=== PATIENT | male | born 1955 | race Caucasian/White ===

== ENCOUNTER 2017-06-12 16:33 | Emergency (ER) | payer OTHER ==
--- NOTE | 2017-06-12 16:44 | UC ---
HPI Febrile Illness - HPI Summary HPI Summary: 61 YEAR OLD MALE PRESENTS WITH COMPLAINS OF FEVER, CHILLS AND COUGH. - History of Current Complaint Time Seen by Provider: 06/12/17 16:44 Hx Obtained From: Patient Initial Severity: Moderate Current Severity: Moderate - Allergy/Home Medications Allergies/Adverse Reactions: Allergies Allergy/AdvReac Type Severity Reaction Status Date / Time Amoxicillin Allergy Rash Verified 06/12/17 16:52 Codeine Allergy Headache Verified 06/12/17 16:52 Home Medications: Home Medications Aspirin [Ecotrin 325 MG] 650 mg PO Q6H PRN 06/12/17 [History Confirmed 06/12/17] Methimazole TAB* [Tapazole TAB*] 20 mg PO DAILY 06/12/17 [History Confirmed ] Propranolol LA CAP* [Inderal LA CAP*] 80 mg PO DAILY 06/12/17 [History Confirmed 06/12/17] Simvastatin [Zocor 40 MG (NF)] 40 mg PO QPM 06/12/17 [History Confirmed 06/12/17 ] PMH/Surg Hx/FS Hx/Imm Hx Previously Healthy: Yes - Surgical History Surgical History: Unable to Obtain/Confirm Review of Systems Constitutional: Fever, Chills Skin: Negative Eyes: Negative ENT: Negative Respiratory: Negative Cardiovascular: Negative Gastrointestinal: Negative Genitourinary: Negative Motor: Negative Neurovascular: Negative Musculoskeletal: Negative Neurological: Negative Psychological: Negative All Other Systems Reviewed And Are Negative: Yes Physical Exam Triage Information Reviewed: Yes Vital Signs Reviewed: Yes Eye Exam: Normal ENT Exam: Normal Dental Exam: Normal Neck exam: Normal Neck: Positive: 1 Respiratory Exam: Normal Cardiovascular Exam: Normal Abdominal Exam: Normal Musculoskeletal Exam: Normal Neurological Exam: Normal Psychological Exam: Normal Skin Exam: Normal Course/Dx - Diagnoses Clinic Provider Diagnoses: FEVER. CHILLS. BODYACHES Discharge - Discharge Plan Condition: Stable Disposition: HOME Prescriptions: Azithromyxin SAMMI (NF) [Z-Sammi (Zithromax) 250 mg tabs #6] 2 tab PO .TODAY, THEN 1 DAILY #6 tab Patient Education Materials: Sinusitis (ED) Referrals: Chani Dang MD [Primary Care Provider] -
[2017-06-12 16:52] VITALS: BP 116/71
--- NOTE | 2017-06-12 17:32 | RAD ---
INDICATION: Cough COMPARISON: None TECHNIQUE: PA and lateral dual-energy views were obtained. FINDINGS: Bones/Soft Tissues: There are no acute bony findings. Cardiomediastinal: The cardiomediastinal silhouette is normal. Lungs: There are no infiltrates. Pleura: There are no pleural effusions. Other: None IMPRESSION: NO ACTIVE DISEASE.
== END 2017-06-12 18:03 | disposition home or self-care (01) ==
LOC: UCEAST 16:33
DX: R50.9 Fever, unspecified (principal); Z88.6 Allergy status to analgesic agent; Z88.1 Allergy status to other antibiotic agents; Z79.82 Long term (current) use of aspirin; R52 Pain, unspecified
CPT/HCPCS: 71020; 87502; 87651; 99212; G0463

== ENCOUNTER 2018-03-22 06:13 | Observation (INO) | payer OTHER ==
--- NOTE | 2018-03-11 21:17 | HP ---
CC: Dr. Chani Dang; Dr. Willard Boston * ADMISSION HISTORY AND PHYSICAL: DATE OF ADMISSION: 03/22/18. ATTENDING SURGEON: Dr. Teresa Anderson.* (DICTATED BY BELIA ANDREWS) CHIEF COMPLAINT: Thyrotoxicosis (Graves' disease). HISTORY OF PRESENT ILLNESS: This is a 62-year-old generally healthy male, who beginning about a year ago noted symptoms of shortness of breath, fatigue, poor exercise tolerance, and excessive sweating. He was worked up and found to have hyperthyroidism (Graves' disease). He has been followed by Dr. Boston's office and managed on methimazole and propranolol. His symptoms improved significantly. He does have a [id number] goiter. His methimazole has been tapered down and the propranolol has been stopped without any recurrence of the symptoms. He was referred to Dr. Anderson for surgical evaluation and was seen in the office on 02/05/18. Exam at that time revealed a somewhat enlarged , but otherwise nontender thyroid gland without suspicious masses or nodules. The patient understands the indication for surgery, the risks, benefits, and alternatives and would like to proceed as scheduled with bilateral subtotal thyroidectomy. He has already received a prescription for levothyroxine from Dr. Boston's office, which he will initiate postoperatively. PAST MEDICAL HISTORY: Hyperlipidemia, allergic rhinitis, hereditary hemochromatosis, Graves' disease (as noted above). PAST SURGICAL HISTORY: Bilateral stapedectomy. CURRENT MEDICATIONS: 1. Simvastatin 40 mg once daily. 2. Methimazole 5 mg once daily. 2. EpiPen p.r.n. for wasp stings. ALLERGIES: CODEINE (GI effects), AMOXICILLIN (rash), DOXYCYCLINE (rash). FAMILY HISTORY: Negative for endocrine malignancy. It is also negative for anesthesia problems, bleeding or clotting disorders. SOCIAL HISTORY: The patient is . 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 He denies use of tobacco. He drinks alcohol infrequently (1 drink per month) and denies other recreational drug use. REVIEW OF SYSTEMS: General: As above per HPI with approximately 10 to 15 pounds weight gain about a year ago, which he has been gradually trying to lose. No other acute or recent illnesses. HEENT: No visual changes. No other problems reported. Specifically, no dysphagia or dyspnea. Cardiovascular : No chest pain, palpitations or history of hypertension. Respiratory: No history of asthma, chronic cough or shortness of breath. GI: No problems reported. Colonoscopy last done about 10 years ago with repeat due this May and no interval symptoms of concern. : No problems reported. Endocrine: As above. No history of diabetes. Remainder of the review of systems is negative. PHYSICAL EXAMINATION GENERAL: Well-nourished, mildly obese male, in no acute distress. VITAL SIGNS: Height 71 inches, weight 203 pounds, blood pressure 118/84, pulse 58, respirations 16. HEENT: Pupils equal and round, reactive. EOMs intact. No conjunctival pallor. No significant exophthalmos. NECK: No cervical or supraclavicular lymphadenopathy. No masses, thyroid as per Dr. Anderson's exam. LUNGS: Clear to auscultation. No rales or wheezes. HEART: Regular rate and rhythm. No murmur noted. ABDOMEN: Soft, nontender to palpation. No palpable masses or organomegaly. No palpable inguinal hernias. GENITALIA: Otherwise normal including testes. EXTREMITIES: No edema. RECTAL: Not done. BACK: No spinous processes or CVA tenderness. NEUROLOGIC: Grossly intact. SKIN: Warm and dry. No suspicious rashes or lesions. IMPRESSION: Thyrotoxicosis (Graves' disease). PLAN: Bilateral subtotal thyroidectomy. BELIA ANDREWS [id number]/[facility] #: [id number] [facility]IAL HOSPITALDamaris
[~2018-03-22 06:13] MED LIST: Buffered Lidocaine 0.9% SYRIN* 5 ML/SYR SYRINGE INTRADERM ONE; Dexamethasone IV* 4 MG/ML 1 ML (4 MG) IV SLOW PU ONE; Famotidine IV* 10 MG/ML 2 ML (20 mg) IV ONE
[2018-03-22] MEDS ORDERED: fentaNYL* 50 MCG/ML 2 ML VIAL (100 MCG VIAL) ONE ×2 (06:43→11:04)
[2018-03-22] MEDS ORDERED: Midazolam* 1 MG/ML 2 ML VIAL (2 MG) ONE (06:44)
[2018-03-22] MEDS ORDERED: Dexamethasone IV* 4 MG/ML 1 ML (4 MG) ONE (06:46)
[2018-03-22] MEDS ORDERED: Famotidine IV* 10 MG/ML 2 ML (20 mg) ONE (06:47)
[2018-03-22] MEDS ORDERED: Bupivacaine 0.25% W/EPI* 10 ML SDV ONE (06:55)
[2018-03-22] MEDS ORDERED: Rocuronium* 10 MG/ML VIAL ONE (07:31)
[2018-03-22] MEDS ORDERED: Propofol* 10 MG/ML 20 ML BTL IV PUSH ONE (08:10)
[2018-03-22] MEDS ORDERED: Lidocaine 2% PF * 5 ML VIAL ONE (08:10)
[2018-03-22] MEDS ORDERED: DiMENhydriNATE IV* 50 MG/ML VIAL IV PUSH PRN (08:14)
[2018-03-22] MEDS ORDERED: oxyCODONE/Acetamin 5/325 MG* TAB PO PRN (08:14)
[2018-03-22] MEDS ORDERED: Ondansetron INJ* 2 MG/ML VIAL IV PRN ×2 (08:14→10:56)
[2018-03-22] MEDS ORDERED: Acetaminophen TAB* 325 MG PO PRN ×2 (08:14→10:52)
[2018-03-22] MEDS ORDERED: Naloxone* 0.4 MG/ML 1 ML VIAL IV PRN (08:14)
[2018-03-22] MEDS ORDERED: Ondansetron INJ* 2 MG/ML VIAL ONE (09:55)
--- NOTE | 2018-03-22 10:21 | OP ---
Operative Report - Blank - Operative Report Date of Operation: 03/22/18 Note: Brief Operative Note Preop Dx: Hyperthyroidism Postop Dx: same Procedure: Bilateral subtotal thyroidectomy Anesthesia: GET Surgeon: Justin Numerical Control Machine Operator: BELIA Canales Fluids: 1300 ml RL EBL: 50 ml Specimen: subtotal thyroid Drains: none Findings: dictated
[2018-03-22] MEDS ORDERED: Morphine VIAL* 4 MG/ML VIAL (1 ml vial) IV PRN (10:54)
[2018-03-22] MEDS ORDERED: Morphine INJ* 2 MG/ML 1 ML SYRINGE (TWO MG - NEW SYRINGE VERSION) IV PRN (10:54)
[2018-03-22] MEDS: fentaNYL* 50 MCG/ML 2 ML VIAL (100 MCG VIAL) IV PRN ×2 (11:05→11:56)
[2018-03-22] MEDS ORDERED: HYDROcodone/ACET. 7.5/325 LIQ* 15 ML UDC ONE (11:34)
[2018-03-22] MEDS: HYDROcodone/ACET. 7.5/325 LIQ* 15 ML UDC PO PRN ×3 (11:36→22:34)
--- NOTE | 2018-03-23 00:37 | OP ---
CC: [facility]; Dr. Chani Dang; Dr. Willard Boston OPERATIVE REPORT: DATE OF OPERATION: 03/22/18 DATE OF : 57 SURGEON: Teresa Anderson MD ORTHOTIC TECHNICIAN: BELIA Canales PRE-OP DIAGNOSIS: Hyperthyroidism. POST-OP DIAGNOSIS: Hyperthyroidism. OPERATIVE PROCEDURE: Bilateral subtotal thyroidectomy. INDICATIONS: Mr. Webber is a 62-year-old male who had symptomatic hyperthyroidism prompting the plan for surgical intervention. DESCRIPTION OF PROCEDURE: He was brought to the operating room, placed on the OR table in a supine p osition and given general anesthesia. The neck was prepped and draped in the usual sterile fashion. After infiltrating with local anesthetic, an incision was made along the line that had been marked pr eoperatively. Subcutaneous tissue was divided with electrocautery through the platysma muscle and th en flaps were developed superiorly to the thyroid notch and inferiorly to the sternal notch. The stra p muscles were divided along the midline and then retracted first over the right side of the gland. The strap muscles were noted to be somewhat adherent to the thyroid gland, but careful blunt and kirk p dissection ultimately exposed the thyroid gland and dissection in the superior pole has begun. On the medial aspect of the thyroid gland individual vessels were identified, were divided between ligat ure and clip until the apex was reached and then blunt dissection was used to dissect posteriorly. A ttention was then turned to the inferior pole. Here the LigaSure was used to divide vessels that ron roached the gland and finally the middle portion of the gland was approached. Here, it was recognize d that there was a parathyroid this was as above it was preserved throughout the surgery by dissectin g between the thyroid and the parathyroid to preserve the vasculature. Then, the blunt dissection was used and freeing up the attachments of the middle portion of the gland and in the course we were doi ng this the recurrent laryngeal nerve was of course identified and noted to be preserved through the surgery. A superior pole parathyroid was also identified and preserved through the surgery. Eventual ly, the gland was free enough that it could be elevated anteriorly and medially allowing dissection o f the gland from the trachea. A small portion of the gland was left in situ as the rest of the gland was divided from the trachea using electrocautery. Once it was free from the gland, attention was t hen turned to the left side. Here again in a similar fashion the fat muscles were dissected free fro m the anterior surface of the thyroid gland until the superior pole was adequately exposed then disse ction was begun. The medial portion of the superior pole where individual vessels were divided betwe en ligature and clip. Once the apex was freed up, the posterior aspect was reversely dissected with blunt dissection and then the inferior pole was attempted to, here individual vessels were divided wi th the ligature. As the middle portion was approached, search was made for the recurrent laryngeal n erve, which was identified and noted to be preserved through the case. Once that was done, further d issection exposed to likely counted it for the superior and inferior pole parathyroids and these were preserved through the surgery. A small portion of the thyroid gland left in situ as the rest was div ided with electrocautery from the anterior surface of the trachea. Although, it should be mentioned t hat on the medial aspect of the thyroid gland was attached to the trachea, blunt dissection was used and the residual gland was divided between clips. Once the gland was freed up, it was handed off as the specimen and then the wound was inspected for hemostasis. A small piece of Surgicel was placed i n either side of the trachea and then closure was accomplished, this was done with 3-0 Vicryl to reap proximate the strap muscles, 4-0 Vicryl was used to reapproximate the platysma muscle and the skin wa s closed with 4- 0 Prolene in the subcuticular fashion. Steri-Strips and a dry fluffy dressing were applied. All sponge and instrument counts were correct. The patient tolerated the procedure well and was transferred to recovery in a stable condition. [id number]/[facility] #: [id number]
[2018-03-23] MEDS: HYDROcodone/ACET. 7.5/325 LIQ* 15 ML UDC PO PRN ×2 (04:37→19:56)
--- NOTE | 2018-03-23 07:13 | PN ---
Progress Note - Progress Note Date of Service: 03/23/18 Note: Surgery Mr. Webber says the pain is better, he denies numbness or tingling. Vital Signs 03/22/18 03/22/18 03/22/18 10:27 10:30 10:35 Temperature 97.7 F Pulse Rate 81 80 71 Respiratory 20 9 12 Rate Blood Pressure 144/90 141/92 132/86 (mmHg) O2 Sat by Pulse 94 95 96 Oximetry 03/22/18 03/22/18 03/22/18 10:40 10:45 11:00 Temperature Pulse Rate 62 59 61 Respiratory 12 14 10 Rate Blood Pressure 139/92 146/95 147/101 (mmHg) O2 Sat by Pulse 95 95 94 Oximetry 03/22/18 03/22/18 03/22/18 11:05 11:15 11:32 Temperature Pulse Rate 59 59 Respiratory 14 10 14 Rate Blood Pressure 151/96 149/94 (mmHg) O2 Sat by Pulse 94 95 Oximetry 03/22/18 03/22/18 03/22/18 11:36 11:45 11:56 Temperature Pulse Rate 59 Respiratory 14 12 14 Rate Blood Pressure 154/101 (mmHg) O2 Sat by Pulse 94 Oximetry 03/22/18 03/22/18 03/22/18 12:00 12:15 12:18 Temperature 97.7 F Pulse Rate 56 55 57 Respiratory 12 14 12 Rate Blood Pressure 140/96 140/99 142/97 (mmHg) O2 Sat by Pulse 95 92 95 Oximetry 03/22/18 03/22/18 03/22/18 12:30 12:34 12:45 Temperature Pulse Rate 56 56 62 Respiratory 13 13 14 Rate Blood Pressure 150/104 143/99 141/101 (mmHg) O2 Sat by Pulse 96 96 96 Oximetry 03/22/18 03/22/18 03/22/18 13:00 13:30 13:52 Temperature 97.6 F Pulse Rate 56 58 Respiratory 9 16 16 Rate Blood Pressure 147/98 133/86 (mmHg) O2 Sat by Pulse 96 98 Oximetry 03/22/18 03/22/18 03/22/18 14:26 14:33 15:31 Temperature 97.6 F 97.5 F 97.6 F Pulse Rate 55 54 60 Respiratory 16 14 16 Rate Blood Pressure 138/88 141/84 140/86 (mmHg) O2 Sat by Pulse 95 98 98 Oximetry 03/22/18 03/22/18 03/22/18 16:00 16:34 17:32 Temperature 98.2 F Pulse Rate 72 Respiratory 18 18 Rate Blood Pressure 131/88 (mmHg) O2 Sat by Pulse 98 96 Oximetry 03/22/18 03/22/18 03/22/18 18:13 19:25 19:37 Temperature 97.9 F Pulse Rate 92 Respiratory 18 18 18 Rate Blood Pressure 144/90 (mmHg) O2 Sat by Pulse 95 Oximetry 03/22/18 03/22/18 03/23/18 22:34 22:41 01:25 Temperature 98.2 F Pulse Rate 77 Respiratory 16 16 18 Rate Blood Pressure 130/88 (mmHg) O2 Sat by Pulse 94 Oximetry 03/23/18 03/23/18 03/23/18 04:37 04:39 04:47 Temperature 98.2 F Pulse Rate 76 Respiratory 18 18 Rate Blood Pressure 136/78 (mmHg) O2 Sat by Pulse 94 94 Oximetry Incision is clean and dry [place] sign: neg. Voice: strong Laboratory Results - last 24 hr 03/22/18 03/22/18 03/22/18 10:35 16:24 21:51 Calcium 8.7 8.7 8.6 03/23/18 05:10 Calcium 8.5 L POD#1 s/p bilateral subtotal thyroidectomy; doing well but mildly hypocalcemic this morning. Will prescribe tums and check Ca++ level at noon. If Ca++>8.5 at noon, he can go home.
[2018-03-23] MEDS: Calcium Carbonate CHEW TAB* 500 MG (TUMS) PO SCH ×2 (08:19→13:03)
--- NOTE | 2018-03-23 15:40 | DS ---
CC: [facility]* DISCHARGE SUMMARY: DATE OF ADMISSION: 03/22/18 DATE OF DISCHARGE: 03/23/18 ADMISSION DIAGNOSIS: Hyperthyroidism. DISCHARGE DIAGNOSIS: Hyperthyroidism. PROCEDURES DURING THIS HOSPITALIZATION: Bilateral subtotal thyroidectomy. Mr. Webber is a 62-year-old male who has been dealing with hyperthyroidism and elected to have subtotal thyroidectomy. This was done on the date of admission. Please see admission history and physical for details of findings at the time of admission. Postoperatively, he did well. On the morning after surgery, he had been having no symptoms of numbness or tingling and at the time of discharge his voice was strong. He had mildly depressed calcium on the morning of discharge, which was managed with Tums and a calcium recheck. In fact, this discharge is contingent upon the calcium rising somewhat. He is discharged to home with instructions to follow up as an outpatient. [id number]/[facility] #: [id number] VIJAY
[2018-03-23 19:49] VITALS: BP 137/91
== END 2018-03-23 21:05 | disposition home or self-care (01) ==
LOC: OR 06:13 → SSU 10:32
PROVIDERS: ADMIT Surgery; ATTEND Surgery
DX: E03.9 Hypothyroidism, unspecified (principal); R06.02 Shortness of breath; R53.83 Other fatigue; Z88.0 Allergy status to penicillin
CPT/HCPCS: 36415; 82310; 88307; G0378; J1100; J2250; J2405; J2704; J3010